=== PATIENT | female | born 1940 | race Caucasian/White ===

== ENCOUNTER 2017-01-26 15:41 | Inpatient (IN) | payer MEDICARE, MEDICAID ==
[~2017-01-26] VITALS: Ht 157.5 cm; Wt 70.3 kg
[2017-01-26] MEDS ORDERED: 0.9% Sodium Chloride 1,000 ML IV SCH (15:49)
[2017-01-26] MEDS ORDERED: Insulin Human REGular Inj 100 UNIT in 0.9% Sodium Chloride-Pha MIX 100 ML IV SCH (15:49)
[2017-01-26] MEDS ORDERED: Magnesium Sulf 4 Gm/100 mL H2O 4 GM in IV Premix 1 EACH IV ONE (15:50)
[2017-01-26] MEDS ORDERED: Potassium Chloride Inj 20 MEQ in Dextrose 5% 250 ML IV ONE (15:50)
[2017-01-26] MEDS ORDERED: KCl 40 mEq/100 mL (CENTRAL) 40 MEQ in IV Premix 1 EACH IV ONE (15:50)
[2017-01-26] MEDS ORDERED: Ondansetron 2 mg/mL 2 mL Inj IVPUSH PRN (15:50)
[2017-01-26] MEDS ORDERED: KCl 20 mEq/100 mL(CENTRAL) 20 MEQ in IV Premix 1 EACH IV ONE (15:50)
[2017-01-26] MEDS ORDERED: Senna-Docusate 8.6-50 mg Tablet PO PRN (15:50)
[2017-01-26] MEDS ORDERED: Dextrose 10% 250 ML IV PRN (15:50)
[2017-01-26] MEDS ORDERED: Potassium Chloride 20 mEq SR Tablet PO ONE ×3 (15:50)
[2017-01-26] MEDS ORDERED: Alum-Mag Hydrox-Simeth 30 mL Suspension PO PRN (15:50)
[2017-01-26] MEDS ORDERED: Potassium Chloride 20 mEq/15 mL 15mL Oral Soln PO ONE ×2 (15:50)
[2017-01-26] MEDS ORDERED: Magnesium Sulf 2 Gm/50mL Water 2 GM in IV Premix 1 EACH IV ONE (15:50)
[2017-01-26] MEDS ORDERED: Polyethylene Glycol (PEG) 17 Gm Powder PO PRN (15:50)
[2017-01-26] MEDS ORDERED: KCl 40 mEq/100 mL (CENTRAL) 40 MEQ in IV Premix 1 EACH IV SCH (15:50)
[2017-01-26] MEDS ORDERED: Potassium Chloride 20 mEq/15 mL 15mL Oral Soln TUBE ONE (15:50)
[2017-01-26] MEDS ORDERED: Potassium Chloride 20 mEq SR Tablet PO SCH (16:30)
[2017-01-26] MEDS ORDERED: Potassium Chloride 20 mEq/15 mL 15mL Oral Soln TUBE SCH (16:30)
[2017-01-26 16:45] LABS: BASOPHILS % (AUTO) 0.1 % (0-3); EOSINOPHILS % (AUTO) 1.1 % (0-5); MONOCYTES % (AUTO) 6.6 % (4-12); Mean Corpuscular Hemoglobin 29.2 pg (27.0-35.0); NEUTROPHILS % (AUTO) 85.1 % (40-74); Platelet Count 240 bil/L (150-400)
[2017-01-26 16:50] VITALS: BP 145/68; PULSE 105; RESP 25
[2017-01-26] MEDS ORDERED: 0.9% Sodium Chloride 1,000 ML IV ONE (16:55)
--- NOTE | 2017-01-26 17:04 | PCM.HPMED ---
Subjective Date of Service Jan 26, 2017 Primary Provider: Admitting Physician: Patricia Chua DO Primary Care Physician: [facility] Attending Physician: Patricia Chua DO Admit Status: Direct Admit, Admit to Yellow Team Chief Complaint: Type II diabetes mellitus presents with nausea vomiting and hyperosmolar hyperglycemic syndrome History of Present Illness: The patient states [facility], 4 days prior to admission. At that time she developed nausea and vomiting. This was associated with diffuse continuous, nonlocalized abdominal pain. No diarrhea. No palliating or exacerbating factors. Associated with subjective fevers but no shaking chills. She did not measure her temperature. Since she reduced her by mouth intake as of 3 days prior to admission. She is not taking insulin or other medications in a couple days. She has been unable to hold down water. She reports no contact to others with infectious or enteric disease. She is mostly homebound with her family, none of whom are ill. She denies frequent nausea vomiting, gastroparesis, peptic ulcer disease or bowel disease. She presented to [facility] with altered mental status and obvious hyperosmolar hyperglycemic syndrome. Workup there revealed tachycardia and leukocytosis but no fever. Headache Was approximately 16 with serum acetone positive and serum lactate 8.1, although urinalysis showed only trace ketones. ABG demonstrated no acidemia. Chemistry panel revealed pseudohyponatremia, acute kidney injury, but normal liver function and pancreatic enzymes. Troponin was normal, and EKG unremarkable. She received fluids, insulin and antibiotics. She underwent lumbar puncture which revealed mild elevated protein and mild mononuclear pleocytosis. Clinical concern for meningitis and hyperosmolar encephalopathy led to transfer to [facility] intensive care unit. Review of Systems: The patient is now alert and oriented and a complete 11 system ROS was performed. Findings noted above. Additional findings include episodic periods of depression, not severe recently. Home Medications Per med reconciliation sheet from [facility]: Hydrochlorothiazide 25 mg daily Lisinopril 40 mg twice a day Metoprolol 25-50 mg daily Levothyroxine 88 g Gabapentin 600 mg 3 times a day Ezetimibe 10mg QD Regular insulin 20, 30, 30 units 3 times a day Glargine insulin 40 units twice a day Amitriptyline 10 mg at bedtime PMH # Type II diabetes mellitus # Asthma # Hypertension # Dyslipidemia # Hypothyroidism Family History Mother at a young age. She does not know her father. She is not aware of brothers and sisters health. She reports no significant familial illness propensity. Social History Hx Alcohol Use: No Hx Substance Use: No Hx Tobacco Use: No Living Arrangement: with Family (lives with son-in-law and grandchildren. Sedentary.) Exam Exam Constitutional: Generally healthy appearing elderly woman; no acute distress; vital signs noted Eyes: sclerae anicteric, no conjunctival pallor, ENMT: ears, nose atraumatic; oral mucosa very dry Neck: Entirely supple, JVD absent, no adenopathy Chest: symmetric, no pain or lesions Resp: auscultation clear, no wheezes, rales or dullness Cardiac: S1, S2, regular, no murmur Abdomen: bowel sounds present, mildly tender bilateral lower quadrants, no organomegaly Musculoskeletal: no joints with acute erythema, swelling; hammertoes but no significant joint deformities Skin and soft tissues: no rash; no pitting edema Peripheral pulses: Reduced at feet Lymphatic: no adenopathy cervical Neurological: Cranial Nerves - face symmetric; EOMI; pupils reactive Reflexes - BJ, KJ symmetric diminished Motor - 5/5 strength, slightly increased tone (unable to relax) Coordination - normal movement, no tremor Sensory - light touch intact Psych & Mental Status - alert, appropriate, oriented Lab and Diagnostics Labs [facility] labs drawn on 01/26/17 at approximately 11:00 Hemogram: WBC 20.8, hemoglobin 13.7, platelets 355 Chem panel: Sodium 127, potassium 4.2, chloride 90, bicarbonate 21, BUN 66, creatinine 3.1, glucose 1085, magnesium 1.9 Additional chemistries: Lactate 8.1, serum acetone positive, LFT panel normal, lipase normal Cardiovascular: Troponin I 0.09 (0-1.5), BNP 910 (5-100) Arterial blood gas: 10:41hr 7.53/26/76/FiO2 0.21 13:30hr 7.40/44/93/FiO2 0.35 Urinalysis: 1.015, 3+ glucose, trace ketone Microbiology: UA with no significant pyuria Lumbar puncture: Total protein 55 (15-45); WBC 29, 100% mononuclear, RBC 36, opening pressure not reported, Gram stain negative Result Diagram: 01/26/17 1630 12-lead ECG [facility]: Sinus tachycardia 107, normal conduction intervals, poor R- wave progression, no acute ST-T wave changes. Assessment & Plan 77-year-old woman with hypertension, type II diabetes mellitus presents with several days of acute gastrointestinal illness, poor by mouth intake and hyperosmolar hyperglycemic syndrome. Etiology seems to be gastroenteritis, resulting in acute kidney injury due to dehydration, pseudohyponatremia, and metabolic acidosis. Acute, Active or High-risk Problems: # Systemic inflammatory response, acute. Initial presentation with heart rate 137, WBC 20.8. Associated with severe lactic acidosis. Pertinent negatives no tachypnea, no hypoxia, no fever. SIRS likely related to stress of acute gastroenteritis, not clinical sepsis. - Follow vital signs with fluid resuscitation - AP greater than 65 mm Hg, urine output greater than 0.5 ML/KG/HR - No antibiotics at present # Hyperosmolar hyperglycemic syndrome, acute. - Non-DKA insulin protocol - Aggressive hydration 1 L and is wide open, normal saline at 125 mL per hour, adjust according to serum lactic acid - Follow urine output with goal for greater than 0.5 mL per KG per hour - Nothing by mouth at present # Nausea and vomiting, acute. Probable gastroenteritis syndrome. - Antiemetics - Fluid resuscitation - Nothing by mouth at present - Stool or rectal swab for enteric pathogen # Acute kidney injury. Admitting serum creatinine 3.1. Presumed prerenal azotemia due to dehydration. - Aggressive fluid hydration - Repeat BMP every 4 hours 3 then twice a day - Further workup if no prompt response to fluid hydration # Lactic acidosis, acute. Due to dehydration and tissue perfusion. Not likely due to sepsis. - Follow with fluid resuscitation - Every 4 hours 3, or until less than 2.0 # Possible aseptic meningitis, acute. There are no clinical signs and symptoms of meningitis. LP performed at [facility] revealed mild protein elevation , mild monocytic pleocytosis. Possibly subclinical enterovirus aseptic meningitis related to her gastrointestinal infection. Low probability of herpes encephalitis. There is no reasonable suspicion of acute bacterial meningitis. - Contact precautions - Enteric pathogen PCR, stool or rectal swab - Infectious disease consult in the a.m. # Electrolyte disturbance. Pseudohyponatremia, present on admission. Serum sodium corrected for hyperglycemia is 141. Total serum calcium 5.0 reported from [facility], but patient shows no signs of hypocalcemia. - Follow electrolytes; repeat BMP now, this evening and a.m. - Reflex magnesium and potassium supplement protocol # BNP elevation, present on admission. Of uncertain significance as there is no respiratory distress and she is hypovolemic. She is at high risk for acute diastolic CHF - Oxygen when necessary - Monitor respiratory status clinically Chronic or Stable but Actively Managed Problems: # Hypertension - hold multiple antihypertensives at present # Type II diabetes mellitus - currently insulin drip, converted to subcutaneous insulin when volume status is restored and she is able to take by mouth # Asthma - no wheezing at this time; when necessary bronchodilators # Hypothyroidism - continue thyroid hormone replacement # Dyslipidemia - hold medications at present # Chronic pain or neuropathy - hold gabapentin, hold amitriptyline Pain Evaluation: Adequate Pain Control GI Prophylaxis: H2 daksha VTE Prophylaxis: Sub-Q Heparin (Unfractionated) Resuscitation Status: CPR: Attempt Resuscitation Time spent 70 minutes Wenceslao Limon MD Jan 26, 2017 17:04
[2017-01-26] MEDS ORDERED: Albuterol-Ipratropium 3 mL Inhalation Solution NEB PRN (17:40)
[2017-01-26] MEDS ORDERED: MetoCLOpramide 5 mg/mL 2 mL Inj IVPUSH PRN (17:40)
--- NOTE | 2017-01-26 17:45 | NUR ---
Order for PICC. Upon assessment of veins, with U.S., it is found that there are no veins big enough to cannulate on the right side. On th left there was only one that looked hopeful, but when measured, the vein occupancy was 47%. Measured a second time and it was 52%. notified. No further IV to be placed unless the nurse requests it.
[2017-01-26] MEDS ORDERED: KCL IV SCH (18:10)
[2017-01-26] MEDS ORDERED: SODIUM CHLORIDE 0.45% IV SCH (18:10)
[2017-01-26 18:31] LABS: APPEARANCE,URINE CLEAR (CLEAR,HAZY); COLOR,URINE YELLOW (YELLOW); OCCULT BLOOD,URINE MODERATE (NEGATIVE); UROBILINOGEN,URINE NORMAL (NORMAL)
[2017-01-26] MEDS: Heparin 5,000 Unit/mL Inj SUBQ SCH (18:55)
--- NOTE | 2017-01-26 19:05 | NUR ---
1650: pt received emergently from [facility] via EMS Report pending from [place]; Pt drowsy, Ox1, PIV x2/ Stach 105. Bedside BG 522. MD, RNs @ bedside. Difficult to obtain labs. Trotter in place. Orders pending.
[2017-01-26] MEDS ORDERED: AMIT10TA6 PO (19:39)
[2017-01-26] MEDS ORDERED: INSU100V27 SQ (19:39)
[2017-01-26] MEDS ORDERED: RANI150C4 PO (19:39)
[2017-01-26] MEDS ORDERED: GABA600T2 PO (19:39)
[2017-01-26] MEDS ORDERED: INSU100V7 SUBQ (19:39)
[2017-01-26] MEDS ORDERED: INSU100V28 SUBQ (19:39)
[2017-01-26] MEDS ORDERED: LEVO88TA4 PO (19:39)
[2017-01-26] MEDS ORDERED: METO25TA99 PO (19:39)
[2017-01-26] MEDS ORDERED: EZET10TA PO (19:39)
[2017-01-26] MEDS ORDERED: INSU100V28 SQ (19:39)
[2017-01-26] MEDS ORDERED: HYDR25TA4 PO (19:39)
[2017-01-26] MEDS ORDERED: ALEN70TA2 PO (19:39)
[2017-01-26 19:45] VITALS: PULSE 91; RESP 21; O2SAT 97
[2017-01-26 19:49] VITALS: BP 112/53; PULSE 93; RESP 23; O2SAT 99
[2017-01-26 20:22] LABS: Magnesium 1.9 mg/dL (1.6-2.6)
[2017-01-26] MEDS ORDERED: Potassium Chloride 20 mEq SR Tab(K 3 - 3.7 & Cr 2.1 - 2.9) PO ONE (21:10)
[2017-01-27] VITALS (9 sets, daily range): BP systolic 130–170; BP diastolic 58–85; PULSE 71–94; RESP 13–22; O2SAT 93–98
[2017-01-27] MEDS ORDERED: Glucose 40% Oral Gel 15 Gm Tube PO PRN ×2 (00:40→07:05)
[2017-01-27] MEDS: Heparin 5,000 Unit/mL Inj SUBQ SCH ×3 (00:51→17:19)
[2017-01-27] MEDS: Insulin GLARgine 100 Unit/mL Syringe SUBQ SCH ×3 (01:24→21:07)
[2017-01-27] MEDS ORDERED: Insulin Human REGular 300 Unit/3 mL Inj SUBQ SCH (02:30)
[2017-01-27 05:17] LABS: Mean Corpuscular Hemoglobin 29.4 pg (27.0-35.0)
--- NOTE | 2017-01-27 05:24 | NUR ---
Hyperglycemia/Lab Pt on insulin gtt per non-dka protocol, BG 99 @ 2250, taper off gtt. K+ 3.5, given kcl 20 meq po, repeat K+ 3.7 NA 146, switched IVF from NS to 1/2 NS @ 150 cc/hr. Received new order to transition to insulin subq protocol, and to start ADA diet and lantus. Pt report given to Radha Tovar RN @ 2017.
--- NOTE | 2017-01-27 05:31 | NUR ---
bg/resp/neuro took over pt care at [facility], aware of bmp results, pt changed from ndka protocol to sq lantus and regular sliding scale insulins, bg low 100's, pt roberta po intake ok with help to hold foods, 1/2 ns at 150ml/hr, aware of bnp results, good uop per f/c, lactic acid ordered for this am, denies n/v, tele- sr, denies cp ls- exp wheezes this am, ra sats mid to upper 90's, hob up, contact/resp isolation precautions taken, no more antibiotics ordered by md--asked this shift, pt afebrile, pt a/otimes one to self, forgetful, pleasant, coop, see ccu flow sheet, see assessment charting,
[2017-01-27 05:58] LABS: Magnesium 1.8 mg/dL (1.6-2.6); Phosphorus 3.1 mg/dL (2.5-4.9)
[2017-01-27] MEDS ORDERED: Dextrose 10% 250 ML IV PRN (07:05)
[2017-01-27] MEDS: MeTOProlol XL 25 mg ER24 Tablet PO SCH (08:47)
[2017-01-27] MEDS: Insulin LISPRO 300 Unit/3 mL Inj SUBQ SCH ×4 (09:29→21:13)
--- NOTE | 2017-01-27 10:39 | CONS ---
[address] [address] CONSULTATION REPORT PATIENT: LUIS MANUEL BAE : 1940 MR#: [id number] ADMIT: 01/26/2017 JOB ID: [id number] DATE OF SERVICE: 01/27/[address] Lucien Limon for this timely consultation. REASON FOR CONSULTATION: Meningitis. HISTORY OF THE PRESENT ILLNESS: The patient is a 77-year-old woman who suffers from the usual collection of medical problems including hypertension, diabetes, hyperlipidemia with some hypothyroidism. Despite these chronic medical issues she is usually in pretty good health and among other things participates in helping take care of a 2-year-old within her household. She notes that she was in good health until about five days ago when she developed nausea, vomiting, fevers, chills, and generalized malaise. These symptoms worsened, and were perhaps associated with some short lived confusion, which led her to [facility] where she was admitted on yesterday, January 26. She was subsequently transferred to [facility] because of concern for meningitis based on her cerebral spinal fluid analysis. The patient's confusion was very short lived as noted and by the time she arrived here in transfer she was once again lucid. She did start to complain after her arrival here though of some neck as well as mid thoracic back pain which was new and not a feature of her illness when she presented to [place] earlier yesterday. This morning the patient is awake and alert and tells us that she has never had a headache as part of this, but she does now have some neck pain as mentioned and some thoracic back pain, which is new. She wonders if these could be due to the lumbar puncture she had yesterday at [place]. Her fever and chills have also resolved over the past 24 hours, and she is starting to feel more towards normal. In association with the illness she had some dry cough in addition to the severe nausea and vomiting. There was no associated diarrhea or dysuria or significant shortness of breath. She did note some vague upper abdominal pain in conjunction with these symptoms. PAST MEDICAL HISTORY: 1. Diabetes mellitus type 2, insulin requiring. 2. Hypertension. 3. Hyperlipidemia. 4. Hypothyroidism. 5. There is some ambiguous notes in the chart about CHF, but it does not appear that is substantiated diagnosis and the patient does not have an echocardiogram that we can discover in the medical record. SOCIAL HISTORY: The patient is a nondrinker, nonsmoker. She lives with her extended family including a 2-year-old here in the local area. She reports that the children live within the household have not been sick recently to her knowledge. FAMILY HISTORY: Negative for tuberculosis in first or second-degree relatives. The patient was born and raised in [place] [facility] and has not traveled internationally. REVIEW OF SYSTEMS: Was done. At this point she has no significant headache. She does complain of some neck and back pain as mentioned. She has no photophobia and in fact even bright lights do not even distract her. She has no trouble swallowing. She does report she has had a history of cold sores though not recently. She has a dry cough, but is not especially short of breath. She is not having chest pain. She is having some vague upper abdominal pain, which is mild. Her nausea and vomiting are subsiding. She does not have diarrhea or dysuria. A Trotter catheter is in place, but it should be removed as she is not having urinary retention that we know about and has no urinary tract symptoms. She has some mild numbness in her feet attributed to her diabetes, otherwise she has no neurologic complaint. Remainder of the review of systems negative. PHYSICAL EXAMINATION: Reveals a comfortable elderly woman. Temp 36.8, pulse 94, respiratory rate in the teens, blood pressure 143/85. She is saturating well on room air in no acute distress. Her mental status is completely clear this morning. Her eyes without conjunctivitis. Head without trauma. Her neck is supple, but when her neck is flexed all the way down to the chest she does note some pain in the upper neck region. She has no cervical adenopathy. No JVD is noted. Her lungs quite clear, a few crackles at the right base, but really minor. Cardiac tones regular rate and rhythm without murmur. Abdomen is without organomegaly or ascites, but there is some mild tenderness both in the left and right upper quadrant, but as mentioned no hepatosplenomegaly. She does not have any suprapubic fullness. She does have a Trotter catheter which is draining clear yellow urine. No inguinal adenopathy. Lower extremities without edema. She has reasonable peripheral pulses. No evidence of cellulitis, synovitis, or skin breakdown. She with some mild dysesthesias or numbness in the feet, otherwise though normal neurological including motor strength. DIAGNOSTIC STUDIES: Lab studies include a white count 19,000 yesterday now 18. She has 85% polys interestingly. Her creatinine was 1.78 yesterday and 1.52 today. Lactate yesterday 2.2 and today 0.7 and she had a lactate of 8 when she presented to [facility]. BNP 6138. LFTs are normal. Urinalysis without white cells. A MRSA screen of the nares negative. Imaging has not been done apparently, certainly not here at [facility] and we are not aware of any done at [facility]. Cerebral spinal fluid showed 27 white cells all lymphocytes, 36 red cells, and CSF protein of 55. Blood cultures x2 were negative from [facility]. The cerebral spinal fluid at [facility] was not sent for any PCR studies, and we have contacted the [facility] lab and asked them to forward the spinal fluid that is remaining here to [facility], and we have ordered cerebral spinal fluid PCR panel on the fluid. IMPRESSION: This is a complicated case in that this could represent viral meningitis, but I am concerned about a possible parameningeal focus of infection. This patient has elevated CSF white cells and by definition she does have meningitis. One of the possible causes of meningitis is a so called parameningeal focus where patients have brain abscess, subdural empyema, or spinal epidural abscess which produces a reactive appearance to the cerebrospinal fluid, without actual invasion or infection of the cerebral spinal fluid. I am concerned about this because the patient most likely has viral meningitis, which should be the easy and safe explanation, but what worries me is that the lactate was so high as well as the white count without a good explanation. It is a bit worrisome in an elderly patient like this, presented with nausea, vomiting, fever, and chills and did not receive any imaging and I think if the cerebral spinal fluid is not positive for enterovirus, which would be the most innocuous explanation then we need to proceed with imaging of the neural axis, and we could use either CT scan with contrast or MRI scan of the brain. If this is not forthcoming I would consider MRI scan of the spine as well looking for spinal epidural abscess or other parameningeal focus below the level of the foramen magnum. RECOMMENDATIONS: 1. Will run the cerebral spinal fluid as soon as possible. 2. The patient is not on any antibiotics, which makes me a bit nervous, but I think since we expect an answer on the spinal fluid pretty soon we can hold off at least briefly until we get the answer in this otherwise nontoxic patient. 3. If the cerebral spinal fluid shows a benign viral cause such as enterovirus for this meningitis, we will basically be able to wrap the case out. If the cerebral spinal fluid PCR panel is negative. We will need to move quickly to CT or MRI scans of the brain and if need be the entire spinal cord axis. 4. Isolation can be discontinued. 5. I would discontinue the Trotter as soon as possible as well. Thank you very much for this fascinating consult.
--- NOTE | 2017-01-27 14:02 | NUR ---
Social Work: Initial Assessment D: Per EMR review, pt is a 77 year old female admitted for Sepsis. Pt is Medicare with [facility] supplement; pt has no LTC insurance or VA benefits. PCP is at [facility]. NOK is Raymond Perez, son, . Advanced directives information provided to patient by STAFF REGISTERED NURSE. Readmit score is high, 3/8. STAFF REGISTERED NURSE met with pt at bedside. Sw and dcp role explained and contact info provided. See initial assessment. Pt is a/oX4. Pt states she lives in [place] with her family. Pt is I at baseline, uses no DME and assists with taking care of her two year old grandchild living in the family home. Pt has never had HH or skilled rehab. Pt does not drive and relies on transport from family. Pt anticipates that she will discharge home when she is medically stable. She identifies no needs but is open to discharge planning visits as her care continues. A: Pt who is I at baseline. P: Evolving; STAFF REGISTERED NURSE to continue to follow to assess for needs. Anticipate d/c home when ready. LOLLY Barboza Addendum: 01/27/17 at 1406 by CRYSTAL SHAH Amended: Links added.
--- NOTE | 2017-01-27 14:43 | PCM.PNMED ---
Subjective Date of Service Jan 27, 2017 Subjective Type II diabetes mellitus presents with nausea vomiting and hyperosmolar hyperglycemic syndrome, with CSF pleocytosis. States she feels much better today. Nausea is present but improving. Feels she can take diet today. She now endorses mild neck pain but no headache or photophobia, albeit after much pointed questioning on this topic. No sinus symptoms or dental pain. Exam Vital Signs Vital Sign - Last Date Time Temp Pulse Resp B/P Pulse Ox O2 Delivery O2 Flow Rate FiO2 01/27/17 12:08 36.6 71 22 170/59 96 Room Air 01/26/17 19:49 3.00 Intake and Output 01/26/17 01/26/17 01/27/17 Cumulative From/Thru 15:00 23:00 07:00 01/26/17 16:50 - 01/27/17 06:28 Intake Total 1892 ml 2284 ml 4176 ml Output Total 400 ml 900 ml 1300 ml Balance 1492 ml 1384 ml 2876 ml Intake Oral 340 ml 340 ml IV Total 1892 ml 1944 ml 3836 ml Output Urine Total 400 ml 900 ml 1300 ml # Bowel Movements 0 0 0 Weighted admission 66.5 KG Weight today 69.8 KG Exam General: Generally healthy-appearing in no acute distress HEENT: sclerae anicteric, oral mucosa now moist Neck: no JVD apparent Chest: clear to auscultation Cardiac: S1S2, no murmur Abdomen: BS normal, minimal tenderness with palpation Extremities: No edema Neuro: A&O, cranial nerves symmetric, motor strength and coordination normal IVs and Medications Medications Reviewed: Medications were reviewed in detail Lab and Diagnostics Result Diagram: 01/27/17 0240 01/27/17 0240 X-Rays, CTs and MRIs 01/26/[address] ([facility]) IMPRESSION 1. 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 2. Moderate old small vessel disease and atrophic changes. 3. There is a 2 cm osseous excrescence of the inner table of the right frontal bone consistent with meningioma or exostosis 4. No evidence of acute process 01/26/[address] chest abdomen ([facility]) IMPRESSION: 1. Moderate mucosal thickening of the distal esophagus with fluid distention of the proximal esophagus. Consider reflux esophagitis or esophageal mass/ neoplasm. 2. Moderate chronic parenchymal scarring in the lungs. 3. Marked coronary vascular calcifications. 4. There is a 3 cm left breast mass. Consider benign or malignant neoplasm. Further workup and or biopsy is recommended (as clinically indicated). 5. Status post cholecystectomy. 6. There is 1.5 cm low-density left adrenal nodule consistent with benign adenoma. 7. There is a 0.5 mm nonobstructing calculus in the left lower pole kidney. 8. Marked calcified atheromatous changes aorta and iliofemoral vessels. 9. There is a 3.1 cm left ovarian cyst. Lobe ultrasound after the patient's acute illness is recommended to further evaluate (3-4 weeks). . 12-lead ECG [facility]: Sinus tachycardia 107, normal conduction intervals, poor R- wave progression, no acute ST-T wave changes. Assessment & Plan 77-year-old woman with hypertension, type II diabetes mellitus presents with several days of acute gastrointestinal illness, poor by mouth intake and hyperosmolar hyperglycemic syndrome. Etiology seems to be gastroenteritis, resulting in acute kidney injury due to dehydration, pseudohyponatremia, and metabolic acidosis. Acute, Active or High-risk Problems: # Nausea and vomiting, acute. Probable gastroenteritis syndrome. Enteric pathogen PCR panel is negative including C. difficile. - Antiemetics as needed - Advance diet as tolerated # Possible aseptic meningitis, acute. Mild meningismus today, which was not a prominent presenting symptom. LP performed at [facility] revealed mild protein elevation, mild monocytic pleocytosis. Possibly subclinical enterovirus aseptic meningitis related to her gastrointestinal infection. Low probability of herpes encephalitis. There is no reasonable suspicion of acute bacterial meningitis. Noncontrast head CT shows right frontal bone lesion. No old films for comparison. - Awaiting CSF PCR analysis - Infectious disease consult - Contact precautions discontinued # Acute kidney injury. Admitting serum creatinine 3.1 at [facility]. Serum creatinine 1.5 to within 24 hours of fluid resuscitation. Presumed prerenal azotemia due to dehydration. - Follow BMP # Systemic inflammatory response, acute. Initial presentation with heart rate 137, WBC 20.8. Associated with severe lactic acidosis. Pertinent negatives no tachypnea, no hypoxia, no fever. SIRS likely related to stress of acute gastroenteritis, not clinical sepsis. Lactic acid normalized promptly with fluid resuscitation. Leukocytosis is persistent - Resolved # Hyperosmolar hyperglycemic syndrome, acute. Managed with intravenous Non-DKA insulin protocol. Received 4 L fluid hydration, net +3 L intake output balance. Converted to subcutaneous insulin in a.m. on 01/27. -Resolved # Type II diabetes mellitus. Patient regimen is 80 units Lantus per day with 20 -30 units regular insulin 3 times a day before meals. - Hemoglobin A1c is pending - Resumed glargine 40 units twice a day - Nutritional lispro insulin at three quarters usual dose with correctional - Due to nausea, Give lispro insulin 15 minutes after meal and adjust for amount of food ingested # Lactic acidosis, acute. Due to dehydration and tissue perfusion. Not likely due to sepsis. - Resolved # Electrolyte disturbance. Pseudohyponatremia, present on admission. Serum sodium corrected for hyperglycemia is 141. Total serum calcium 5.0 reported from [facility], but patient shows no signs of hypocalcemia. - Stable, continue to monitor # BNP elevation, present on admission. ProBNP 6138. Of uncertain significance as there is no respiratory distress and she is hypovolemic. She is at high risk for acute diastolic CHF - Oxygen when necessary - Monitor respiratory status clinically - Monitor intake and output # Esophagitis, chronic. Significant inflammation detected by CT scan. - Full dose proton pump inhibitor # Left breast mass, new diagnosis. Detected on CT chest 01/26. Of uncertain relationship to current skull bone lesion and pleocytosis. - Plan follow-up with biopsy. Chronic or Stable but Actively Managed Problems: # Left ovarian cystic lesion, new diagnosis. Detected on CT chest abdomen . Of uncertain relationship to medical issues. # Adrenal nodule - 1.5 cm and 11 Hounsfield units - no clinical stigmata of adrenal hyperfunction # Hypertension - hold multiple antihypertensives at present # Type II diabetes mellitus - currently insulin drip, converted to subcutaneous insulin when volume status is restored and she is able to take by mouth # Asthma - no wheezing at this time; when necessary bronchodilators # Hypothyroidism - continue thyroid hormone replacement # Dyslipidemia - hold medications at present # Chronic pain or neuropathy - hold gabapentin, hold amitriptyline GI Prophylaxis: H2 daksha VTE Prophylaxis: Sub-Q Heparin (Unfractionated) VTE Mechanical Devices: Intermittant Pneumatic CD Resuscitation Status: CPR: Attempt Resuscitation Time spent 45 minutes Wenceslao Limon MD Jan 27, 2017 14:43
--- NOTE | 2017-01-27 17:34 | NUR ---
Mentation/Pain/Nausea/Activity Patient is a/o x3 and cooperative. C/O pain in neck and RANGEL. MDs aware. Gave Tylenol with good effect, but neck does hurt with movement. Gave Zophran for nausea x1. Poor PO intake, only ate jello and a few bites of soup this shift so far. Patient just wants to sleep. Independent in bed, but has been up to BSC several times attempting BM. After Miralax and Senna, patient had a large/formed BM. Continuing with poc.
--- NOTE | 2017-01-27 23:51 | NUR ---
Chest pain Pt c/o -04/20 chest pain. States she feels the pain come on when she eats (pt had just eaten dinner) and it persists in the lower mid chest area. Pt also states feeling of getting food stuck and feeling the pain as the food "goes down," feels this with water as well. No coughing or choking visualized. Per MD note, pt has espophagitis, was given HS Pepcid as well as Maalox. Stat EKG also done given residual lower mid chest pain, showed abnormal T in lateral leads, also reviewed EKG w/ charge master specialist Rachel to see if any concerns. MD notified of findings and interventions, ordered pt to be put back on tele, PRN morphine and troponin labs. Pt given 1mg IV Morphine, when reassessed very soon after pt stated pain was decreasing, verbalized she would inform nursing if pain did not resolve or if it returned. When reassessed a couple times more pt was sleeping, slight snoring heard. Ongoing care. Addendum: 01/28/17 at 0020 by VALARIE SEARS RN updated on status post morphine, also that 0230 Troponin result would be watched for. Addendum: 01/28/17 at 0628 by VALARIE SEARS RN Critical Troponin of 0.047 reported to night MD. Pt has had no more c/o of chest pain since morphine admin early in night. No new orders given at this time. Pt reminded w/ each intervention to inform nursing if pain were to return, pt verbalized understanding. A&Ox3.
[2017-01-28] MEDS: Heparin 5,000 Unit/mL Inj SUBQ SCH ×2 (01:05→09:54)
[2017-01-28 02:47] LABS: Mean Corpuscular Hemoglobin 29.5 pg (27.0-35.0); Mean Corpuscular Volume 88.4 fL (81-100)
[2017-01-28 03:29] VITALS: BP 116/58; PULSE 67; RESP 16; O2SAT 95
[2017-01-28 03:49] LABS: TROPONIN T 0.047 ug/L (0.0-0.011)
[2017-01-28] MEDS ORDERED: Pantoprazole 40 mg ER24 Tablet PO SCH (07:30)
[2017-01-28 08:36] VITALS: PULSE 74
--- NOTE | 2017-01-28 08:49 | PROG NOTE ---
[address] [address] PROGRESS NOTE PATIENT: LUIS MANUEL BAE : 1940 MR#: [id number] ADMIT: 01/26/2017 JOB ID: [id number] DATE: 01/28/2017 INFECTIOUS DISEASE FOLLOWUP NOTE: REASON FOR FOLLOWUP: Unexplained CSF pleocytosis. INTERVAL HISTORY: Overnight, the patient reports she has been feeling reasonably well. No fevers or chills. She does have a headache which continues. No stiff neck. No cough. She does note that for several days, but not before that, she has had both odynophagia and dysphagia. She also tells us today that for a month or so she has had a lump in her left breast. She states she thinks it has actually gotten better but it was not preceded by any trauma or known precipitant. It has not been evaluated by anyone. PHYSICAL EXAMINATION: Reveals an afebrile woman. Temp 36.6. She has been afebrile since admission. Pulse 67, respiratory rate 16, blood pressure 116/58. She is saturating well on room air. She is in no acute distress. She is awake and alert. Eyes with normal extraocular movements. There is no conjunctivitis. Her neck is completely supple. Her mental status, she is sharp today. Examination of the lungs reveals they are clear. The abdomen is benign. The left breast has a 3-4 cm, hard mass or nodule just medial and above the nipple. There is no corresponding process on the other side. No skin rash is noted. LABORATORIES: Include a white count now down to 10,000. Creatinine is 1.39, which is relatively stable. Calculated creatinine clearance is 53. Procalcitonin 0.13. Urinalysis without white cells. The cerebral spinal fluid PCR was negative. MRSA screen negative. We know from [facility] blood and spinal fluid cultures remain negative. IMAGING: We did find some imaging from [facility]. Recall that when we called yesterday we were led to understand there was no imaging prior to her lumbar puncture but, in fact, there was a CT scan. We have now viewed that on [employer]. That CT scan shows a 2 cm old right frontal infarct, as well as a 2 cm osseous abnormality of the inner table of the right frontal bone which could be a meningioma or exostosis. Also done there was a normal chest x-ray and a CT of the thorax and abdomen. This is worrisome in that it shows abnormalities of the distal esophagus which could be reflux esophagitis or even esophageal cancer which might go along with her history of dysphagia. In addition, there is a 3 cm left breast mass. This breast mass is best described as a lobulated left breast mass, 3 x 2 cm. IMPRESSION: This is an elderly woman who presented with nausea and vomiting and was found to have a cerebrospinal fluid pleocytosis on a cerebral spinal fluid. This was a mild cerebrospinal fluid pleocytosis with only 27 white blood cells and some scattered red blood cells as well. This cerebrospinal fluid pleocytosis must be explained. Yesterday, I had hoped that this was viral, and it appears that is not the case based on her PCR studies. I am now concerned that this could be malignant either on the basis of a possible meningioma or, more likely, on the basis of breast cancer, given the mass in her left breast. Still possible is a parameningeal focus such as brain abscess or subdural empyema or spinal epidural abscess, although all of these seem somewhat less likely based on this imaging we have received. RECOMMENDATIONS: 1. No antibiotics. 2. MRI scan of the brain and the entire spinal cord is indicated to look for a parameningeal focus of infection. 3. Biopsy of the left breast mass is indicated. 4. Will attempt and see if we get some spinal fluid sent here from [facility] or perhaps we already have some spinal fluid here from [facility] we can send for cytology looking for a malignant process. 5. The patient will also likely require upper endoscopy to look at that distal esophagus, though esophageal cancer typically does not spread to the meninges, as breast cancer can.
[2017-01-28 09:13] VITALS: BP 145/66; PULSE 83; RESP 16; O2SAT 98
[2017-01-28] MEDS: MeTOProlol XL 25 mg ER24 Tablet PO SCH (09:54)
[2017-01-28] MEDS: Insulin GLARgine 100 Unit/mL Syringe SUBQ SCH (09:56)
[2017-01-28] MEDS: Insulin LISPRO 300 Unit/3 mL Inj SUBQ SCH ×2 (10:05→13:14)
[2017-01-28] MEDS ORDERED: INSU100V7 SUBQ (11:27)
[2017-01-28] MEDS ORDERED: INSU100V28 SUBQ (11:27)
[2017-01-28] MEDS ORDERED: OMEP20CA11 PO (11:27)
--- NOTE | 2017-01-28 11:35 | PCM.DIMED ---
Discharge Instructions Date of Service Jan 28, 2017 Dates of Hospitalization Jan 26, 2017 at 15:43 Discharge Diagnosis Discharge Diagnosis Diabetes mellitus type II uncontrolled Hyperosmolar hyperglycemic state Gastroenteritis Breast mass Esophagitis Medication Instructions Additional med instructions You should continue your Lantus insulin at 40 units each morning with 75 units each night, or you may take 60 units twice per day instead. A new prescription has been sent to the [facility] pharmacy. Make sure that [facility] gives you adequate refills in the future. You should continue your Novolin insulin Units 20 with breakfast, 30 with lunch , 30 with dinner. If you notice high blood sugars in the afternoon or evening and you should increase lunch and dinner insulin to 35 units, or 40 units at each meal. Prescription for Novolin insulin has been sent to [facility] pharmacy. You have chest pain due to irritation of your esophagus. You should take the acid precision dyer omeprazole instead of ranitidine to help with this problem. Diet Discharge Diet: Diabetic Activity Discharge Activity: No restrictions Call your provider Call your provider for: Fever or Chills Patient Instructions Patient Instructions Your very high blood sugar and mental confusion was due to a stomach infection which seems to be gone at this time. You should contact her doctor if you have any fevers or severe headache or more vomiting. A follow-up appointment will be scheduled with the [facility] to perform a biopsy of the lump in her left breast. Someone should be contacting you shortly to arrange this appointment. It is important that you follow-up and complete this test. A follow-up appointment has been made with Dr. Eusebio Etienne on at 9:45 AM. Follow-up plan Please contact the breast care clinic to schedule breast biopsy appointment as soon as possible. Follow-up Provider: Eusebio Etienne MD Follow-up with PCP in: Other (01/30/17 at 9:45 AM) Provider: [facility] Follow-up in: 1 week (the breast care center should contact you for an appointment for a biopsy) Wenceslao Limon MD Jan 28, 2017 11:35
[2017-01-28 12:15] VITALS: BP 169/73; PULSE 72; RESP 16; O2SAT 99
--- NOTE | 2017-01-28 14:48 | NUR ---
Social Work: Discharge D: EMR reviewed. Pt is on day 2 of hospitalization. Per MD is AM multi-disciplinary rounds, pt will discharge today so long as MRI is clear and pt has been cleared by ID. Per RN, pt has been up ambulating in room independently. Pt will transport home today via POV. SW does not anticipate any discharge needs but will continue to follow if needs arise. A: Pt who is independent at baseline. P: Pt will transport home today via POV. SIVAKUMAR does not anticipate any discharge needs but will continue to follow if needs arise. LOLLY Machuca
--- NOTE | 2017-01-28 16:43 | NUR ---
Activity/Discharge A/Ox3, good intake for meals and up to chair. D/C sheehan and ambulated to BR with 1P assist. States no pain, and ready to go home. Discharge ordered received and reviewed with patient (reinforced with family). Opportunity for questions, and review of instruction, was given. Pt. indicted no further questions at this time. D/C IV x2 and escorted to POV via wheelchair.
--- NOTE | 2017-01-28 19:06 | PCM.DC.MED ---
Discharge Summary Date of Service Jan 28, 2017 Dates of Hospitalization Date of Hospital Admission Jan 26, 2017 at 15:43 Date of Discharge: Jan 28, 2017 Providers: Admitting Physician: Asa Ruffin MD Primary Care Physician: [facility] Attending Physician: Asa Ruffin MD Diagnosis at Time of Discharge Diagnosis at Time of Discharge Diabetes mellitus type II uncontrolled Hyperosmolar hyperglycemic state Gastroenteritis Breast mass Esophagitis Consultations Infectious Disease: RECOMMENDATIONS: 1. No antibiotics. 2. MRI scan of the brain and the entire spinal cord is indicated to look for a parameningeal focus of infection. 3. Biopsy of the left breast mass is indicated. 4. Will attempt and see if we get some spinal fluid sent here from [facility] or perhaps we already have some spinal fluid here from [facility] we can send for cytology looking for a malignant process. 5. The patient will also likely require upper endoscopy to look at that distal esophagus, though esophageal cancer typically does not spread to the meninges, as breast cancer can. Nacho Bautista MD 01/28/17 0802 . Procedures XRay, CTs & MRIs 01/26/[address] ([facility]) IMPRESSION 1. 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 2. Moderate old small vessel disease and atrophic changes. 3. There is a 2 cm osseous excrescence of the inner table of the right frontal bone consistent with meningioma or exostosis 4. No evidence of acute process 01/26/[address] chest abdomen ([facility]) IMPRESSION: 1. Moderate mucosal thickening of the distal esophagus with fluid distention of the proximal esophagus. Consider reflux esophagitis or esophageal mass/ neoplasm. 2. Moderate chronic parenchymal scarring in the lungs. 3. Marked coronary vascular calcifications. 4. There is a 3 cm left breast mass. Consider benign or malignant neoplasm. Further workup and or biopsy is recommended (as clinically indicated). 5. Status post cholecystectomy. 6. There is 1.5 cm low-density left adrenal nodule consistent with benign adenoma. 7. There is a 0.5 mm nonobstructing calculus in the left lower pole kidney. 8. Marked calcified atheromatous changes aorta and iliofemoral vessels. 9. There is a 3.1 cm left ovarian cyst. Lobe ultrasound after the patient's acute illness is recommended to further evaluate (3-4 weeks). . ECG 12 Lead [facility]: Sinus tachycardia 107, normal conduction intervals, poor R- wave progression, no acute ST-T wave changes. Brief History History of Present Illness (per admission note): The patient states she was last seen a usual state of health on 01/22, 4 days prior to admission. At that time she developed nausea and vomiting. This was associated with diffuse continuous, nonlocalized abdominal pain. No diarrhea. No palliating or exacerbating factors. Associated with subjective fevers but no shaking chills. She did not measure her temperature. Since she reduced her by mouth intake as of 3 days prior to admission. She is not taking insulin or other medications in a couple days. She has been unable to hold down water. She reports no contact to others with infectious or enteric disease. She is mostly homebound with her family, none of whom are ill. She denies frequent nausea vomiting, gastroparesis, peptic ulcer disease or bowel disease. She presented to [facility] with altered mental status and obvious hyperosmolar hyperglycemic syndrome. Workup there revealed tachycardia and leukocytosis but no fever, or headache. Anion gap was approximately 16 with serum acetone positive and serum lactate 8.1, although urinalysis showed only trace ketones. ABG demonstrated no acidemia. Chemistry panel revealed pseudohyponatremia, acute kidney injury, but normal liver function and pancreatic enzymes. Troponin was normal, and EKG unremarkable. She received fluids, insulin and antibiotics. She underwent lumbar puncture which revealed mild elevated protein and mild mononuclear pleocytosis. Clinical concern for meningitis and hyperosmolar encephalopathy led to transfer to [facility] intensive care unit. . Hospital Course Acute, Active or High-risk Problems: # Possible aseptic meningitis, acute. Mild meningismus reported during hospitalization, which was not a prominent presenting symptom. LP performed at [facility] revealed mild protein elevation, mild monocytic pleocytosis. Possibly subclinical enterovirus aseptic meningitis related to her gastrointestinal infection. Low probability of herpes encephalitis. There is no reasonable suspicion of acute bacterial meningitis. Noncontrast head CT shows right frontal bone lesion, possible bony exostosis or meningioma, of uncertain significance. No old films for comparison. CSF PCR analysis from [facility] was negative for pathogens. She could not undergo brain and spine scanning due to renal insufficiency during this hospitalization. - Recommend follow-up contrast CT or MRI contrast to rule out parameningeal abscess if she continues to have symptoms. # Left breast mass, new diagnosis. Detected on CT chest 01/26. Of uncertain relationship to current skull bone lesion and pleocytosis. - Plan follow-up with biopsy. - [facility] was contacted and they need PCP order for ultrasound and mammogram, prior to planning any biopsy. This can be faxed to them at . # Type II diabetes mellitus. Patient regimen is 80 units Lantus per day with 20 -30 units regular insulin 3 times a day before meals. - Hemoglobin A1c is 12.6% - She was advised to increase Lantus to 60 units twice a day and increase lunch and dinner Novolin R to 35-40 units each - She reported that her insulin prescription ran out recently and pharmacy would not provide her with a refill. # Esophagitis, chronic. Significant inflammation detected by CT scan. - Full dose proton pump inhibitor - Recommend GI follow-up as outpatient # Left ovarian cystic lesion, new diagnosis. Detected on CT chest abdomen . Of uncertain relationship to medical issues. - Recommend repeat imaging # Acute kidney injury. Admitting serum creatinine 3.1 at [facility]. Serum creatinine 1.39 prior to discharge. Probable diabetic or hypertensive nephropathy.. Actively managed and Resolved problems: # Nausea and vomiting, acute. Probable gastroenteritis syndrome. Enteric pathogen PCR panel is negative including C. difficile. - Resolved # Lactic acidosis, acute. Due to dehydration and tissue perfusion. Not likely due to sepsis. - Resolved # Electrolyte disturbance. Pseudohyponatremia, present on admission. Serum sodium corrected for hyperglycemia is 141. Total serum calcium 5.0 reported from [facility], but patient shows no signs of hypocalcemia. - Stable, continue to monitor # BNP elevation, present on admission. ProBNP 6138. Of uncertain significance as there is no respiratory distress and she is hypovolemic. She is at high risk for acute diastolic CHF - Oxygen when necessary - Monitor respiratory status clinically - Monitor intake and output # Systemic inflammatory response, acute. Initial presentation with heart rate 137, WBC 20.8. Associated with severe lactic acidosis. Pertinent negatives no tachypnea, no hypoxia, no fever. SIRS likely related to stress of acute gastroenteritis, not clinical sepsis. Lactic acid normalized promptly with fluid resuscitation. Leukocytosis is persistent - Resolved # Hyperosmolar hyperglycemic syndrome, acute. Managed with intravenous Non-DKA insulin protocol. Received 4 L fluid hydration, net +3 L intake output balance. Converted to subcutaneous insulin in a.m. on 01/27. -Resolved Chronic or Stable but Actively Managed Problems: # Adrenal nodule - 1.5 cm and 11 Hounsfield units - no clinical stigmata of adrenal hyperfunction # Hypertension - hold multiple antihypertensives at present # Type II diabetes mellitus - currently insulin drip, converted to subcutaneous insulin when volume status is restored and she is able to take by mouth # Asthma - no wheezing at this time; when necessary bronchodilators # Hypothyroidism - continue thyroid hormone replacement # Dyslipidemia - hold medications at present # Chronic pain or neuropathy - hold gabapentin, hold amitriptyline . Exam Vital Signs (Last) Date Time Temp Pulse Resp B/P Pulse Ox O2 Delivery O2 Flow Rate FiO2 01/28/17 09:13 36.9 83 16 145/66 98 Room Air 01/26/17 19:49 3.00 Exam General: Generally healthy-appearing in no acute distress HEENT: sclerae anicteric, oral mucosa now moist Neck: no JVD apparent Chest: clear to auscultation Breasts: Left breast with 3 cm mass central right upper quadrant; no apparent axillary adenopathy Cardiac: S1S2, no murmur Abdomen: BS normal, minimal tenderness with palpation Extremities: No edema Neuro: A&O, cranial nerves symmetric, motor strength and coordination normal Test 01/26/17 16:30 01/26/17 18:13 01/27/17 02:40 01/27/17 05:35 Neutrophils (%) (Auto) 85.1% (40-74) Lymphocytes (%) (Auto) 6.6% (14-46) Monocytes (%) (Auto) 6.6% (4-12) Eosinophils (%) (Auto) 1.1% (0-5) Basophils (%) (Auto) 0.1% (0-3) Total Bilirubin 0.2mg/dL (0.0-1.2) Aspartate Amino Transf (AST/SGOT) 10U/L (0-50) Alanine Aminotransferase (ALT/SGPT) 8U/L (0-32) Alkaline Phosphatase 71U/L (25-165) Total Protein 6.7g/dL (6.4-8.4) Albumin 3.0g/dL (3.4-5.0) Urine Color Yellow (YELLOW) Urine Appearance Clear (CLEAR,HAZY) Urine pH 5.0 (5.0-8.0) Urine Specific [place] 1.015 (1.003-1.035) Urine Protein 100mg/dL (NEG,TRACE) Urine Glucose (UA) >1000mg/dL (NEGATIVE) Urine Ketones Negativemg/dL (NEGATIVE) Urine Occult Blood Moderate (NEGATIVE) Urine Nitrite Negative (NEGATIVE) Urine Bilirubin Negative (NEGATIVE) Urine Urobilinogen Normalmg/dL (NORMAL) Urine Leukocyte Esterase Negative (NEGATIVE) Urine RBC 3-10/hpf (0-2) Urine WBC 0-5/hpf (0-5) Urine Epithelial Cells Few/hpf (NONE-MOD) Urine Crystals None seen (NONE SEEN) Urine Bacteria Few/hpf (NONE-FEW) Urine Hyaline Casts None/lpf (NONE) Urine Granular Casts None seen (NONE SEEN) Urine Waxy Casts None seen (NONE SEEN) Urine Red Blood Cell Casts None seen (NONE SEEN) Urine White Blood Cell Casts None seen (NONE SEEN) Urine Mucus None seen (None Seen) Urine Trichomonas None seen (NONE SEEN) Urine Yeast None (NONE SEEN) Urinalysis Comment None Urine Culture Reflexed Not indicated Hemoglobin A1c 12.7% (4.8-5.6) Phosphorus Level 3.1mg/dL (2.5-4.9) Magnesium Level 1.8mg/dL (1.6-2.6) Pro-B-Type Natriuretic Peptide 6138pg/mL (0-738) Lactic Acid Level 0.7mmol/L (0.4-2.0) Test 01/28/17 02:24 01/28/17 08:36 White Blood Count 10.8th/mm3 (3.8-10.1) Red Blood Count 3.63mil/mm3 (3.90-5.20) Hemoglobin 10.7g/dL (12.0-15.6) Hematocrit 32.1% (35.0-46.0) Mean Corpuscular Volume 88.4fL (81-100) Mean Corpuscular Hemoglobin 29.5pg (27.0-35.0) Mean Corpuscular Hemoglobin Concent 33.3% (32.0-37.0) Red Cell Distribution Width 12.9% (12.3-15.4) Platelet Count 159bil/L (150-400) Sodium Level 135mEq/L (134-144) Potassium Level 4.7mEq/L (3.5-5.2) Chloride Level 102mEq/L (97-108) Carbon Dioxide Level 20mmol/L (18-29) Blood Urea Nitrogen 37mg/dL (8-27) Creatinine 1.39mg/dL (0.57-1.00) Estimat Glomerular Filtration Rate 53mL/min (>59) Glucose Level 175mg/dL (60-99) Calcium Level 7.9mg/dL (8.5-10.1) Procalcitonin 0.13ng/mL (0.00-0.08) Troponin T 0.036ug/L (0.0-0.011) Discharge Medications Discharge Medications Alendronate Sodium (Fosamax) 70 Mg Tablet 70 MG PO WEEKLY (Reported) Amitriptyline (Amitriptyline) 10 Mg Tablet 10 MG PO HS (Reported) Ezetimibe (Zetia) 10 Mg Tablet 10 MG PO DAILY (Reported) Gabapentin (Gabapentin) 600 Mg Tablet 600 MG PO TID (Reported) Hydrochlorothiazide (Hydrochlorothiazide) 25 Mg Tablet 25 MG PO DAILY (Reported ) Insulin Glargine (Lantus U100 Insulin Vial) 100 Unit/Ml Vial 60 UNIT SUBQ BID Prescribed by: ASA RUFFIN MD Insulin Regular, Human (HUMulin-R U100 Insulin Vial) 100 Unit/1 Ml Vial 30 UNIT SQ noon (Reported) Insulin Regular, Human (Novolin-R U100 Insulin Vial) 100 Unit/1 Ml Vial 30 SQ HS (Reported) Insulin Regular, Human (HUMulin-R U100 Insulin Vial) 100 Unit/1 Ml Vial 20 UNIT SUBQ MORNING Prescribed by: ASA RUFFIN MD Levothyroxine (Levothyroxine) 88 Mcg Tablet 88 MCG PO QAM (Reported) Metoprolol Succinate ER (Metoprolol Succinate ER) 25 Mg Tab.er.24h 25 MG PO DAILY (Reported) Omeprazole (Omeprazole) 20 Mg Capsule.dr 40 MG PO BID Prescribed by: ASA RUFFIN MD Additional med instructions You should continue your Lantus insulin at 40 units each morning with 75 units each night, or you may take 60 units twice per day instead. A new prescription has been sent to the [facility] pharmacy. Make sure that [facility] gives you adequate refills in the future. You should continue your Novolin insulin Units 20 with breakfast, 30 with lunch , 30 with dinner. If you notice high blood sugars in the afternoon or evening and you should increase lunch and dinner insulin to 35 units, or 40 units at each meal. Prescription for Novolin insulin has been sent to [facility] pharmacy. You have chest pain due to irritation of your esophagus. You should take the acid clinical registered nurse omeprazole instead of ranitidine to help with this problem. Followup Plan Follow-up plan Please contact the [facility] to schedule mammogram and ultrasound appointment as soon as possible. Discharge Diet: Diabetic Discharge Activity: No restrictions Patient Instructions Your very high blood sugar and mental confusion was due to a stomach infection which seems to be gone at this time. You should contact her doctor if you have any fevers or severe headache or more vomiting. A follow-up appointment will be scheduled with the [facility] to perform a biopsy of the lump in her left breast. Someone should be contacting you shortly to arrange this appointment. It is important that you follow-up and complete this test. A follow-up appointment has been made with Dr. Eusebio Etienne on at 9:45 AM. Follow-up Provider: Eusebio Etienne MD Follow-up with PCP in: Other (01/30/17 at 9:45 AM) Provider: [facility] Follow-up in: 1 week (the breast care center should contact you for an appointment for a biopsy) Time spent 45 minutes copies to: Eusebio Etienne MD; [facility] Asa Ruffin MD Jan 28, 2017 11:36
--- NOTE | 2017-01-30 14:45 | PATH ---
SURGICAL PATHOLOGY Attending Physician:Nacho Bautista CASE STATUS: Signed Out PATIENT NAME: LUIS MANUEL BAE PID: [id number] : 1940 DATE COLLECTED:01/26/2017 00:00 SPECIMEN: Cerebrospinal Fluid CLINICAL HISTORY: Cerebrospinal Fluid ICD-10 code not given FINAL DIAGNOSIS: CEREBROSPINAL FLUID CYTOLOGY SPECIMEN (CYTOSPIN): SPECIMEN CONSIDERED INADEQUATE DUE TO SEVERE DEGENERATIVE CHANGES AND CONTAMINATION WITH DEBRIS OF UNCERTAIN ORIGIN. ICD10 G03.9 GROSS DESCRIPTION: Received fresh on 01/29/2017 is approximately 0.5 cc of clear colorless fluid. Prepared is one Cytospin slide. Vo MICRO DESCRIPTION: This is a cytology preparation stated to be of spinal fluid. There is a single cytospin slide available for review. There is abundant debris present, as well as scattered degenerating cells of uncertain etiology. The degenerative changes are such that the specimen is considered inadequate for evaluation. ICD-9 CODES: CPT CODES: 1: 07485 Electronically Signed Out Randall Vicente MD [facility] [address], [place] [address] Technical component performed at [facility] [address], [place], [address]
== END 2017-01-28 15:00 | disposition home or self-care (01) | DRG 637 ==
LOC: PCC 15:43 → CCU 15:49 → PCC 01-27 08:25
PROVIDERS: ADMIT Internal Medicine; ATTEND Internal Medicine
DX: E11.00 Type 2 diabetes mellitus with hyperosmolarity without nonketotic hyperglycemic-hyperosmolar coma (NKHHC) (principal); G03.0 Nonpyogenic meningitis; E87.2 Acidosis; N17.9 Acute kidney failure, unspecified; K52.9 Noninfective gastroenteritis and colitis, unspecified; J45.909 Unspecified asthma, uncomplicated; I10 Essential (primary) hypertension; E03.9 Hypothyroidism, unspecified; E78.5 Hyperlipidemia, unspecified; G89.29 Other chronic pain; Z79.4 Long term (current) use of insulin; K20.9 Esophagitis, unspecified; D48.62 Neoplasm of uncertain behavior of left breast